=== PATIENT | male | born 1995 | race Two or more races ===

== ENCOUNTER 2017-05-24 11:46 | Emergency (ER) | payer SELFPAY ==
[~2017-05-24] VITALS: Ht 162.6 cm; Wt 60.8 kg
[2017-05-24 12:45] VITALS: BP 134/81
--- NOTE | 2017-05-24 13:04 | Emergency Room Report ---
History of Present Illness General Chief Complaint: Laceration Source: Patient Present Illness HPI 21-year-old male presents to the emergency department complaining of sustaining laceration to the distal left index finger yesterday while cutting with a knife at work. He states he is up-to-date with tetanus vaccination he reports pain only with applying pressure on top of where the laceration is. Denies pain at this time. Patient reports he continues to have some intermittent bleeding at this time. Denies taking blood thinning medications.Denies numbness tingling or loss of sensation or gross motor movements of the extremities, incontinence of bowel or bladder. Denies CP, Palpitations, LOC, AMS, dizziness, Changes in Vision, Sensation, paresthesias, or a sudden severe headache. Allergies: Coded Allergies: No Known Allergies (Unverified , 05/24/17) Patient History Past Medical History: see triage record Past Surgical History: none Pertinent Family History: none Immunizations: UTD Reviewed Nursing Documentation: PMH: Agreed, PSxH: Agreed Nursing Documentation-PMH Past Medical History: No Stated History Review of Systems All Other Systems: negative except mentioned in HPI Physical Exam Vital Signs Date Time Temp Pulse Resp B/P (MAP) Pulse Ox O2 Delivery O2 Flow Rate FiO2 05/24/17 12:11 98.6 81 16 134/81 99 Room Air Sp02 EP Interpretation: reviewed, normal General Appearance: no apparent distress, alert, GCS 15, non-toxic Head: normocephalic, atraumatic ENT: hearing grossly normal, normal voice Neck: full range of motion Respiratory: lungs clear, normal breath sounds, speaking full sentences Cardiovascular #1: regular rate, rhythm, normal capillary refill Musculoskeletal: back normal, gait/station normal, normal range of motion, non- tender Neurologic: alert, oriented x3, responsive, motor strength/tone normal, sensory intact, speech normal Skin: normal color, no rash, warm/dry, well hydrated, laceration - Avulsion of the distal portion of the left index finger involving minimal distal portion of the nail-bed. Medical Decision Making PA Attestation Dr. shukla is my supervising Physician whom patient management has been discussed with. Diagnostic Impression: Primary Impression: Fingertip avulsion Qualified Codes: S61.209A - Unspecified open wound of unspecified finger without damage to nail, initial encounter ER Course 21-year-old male presents to the emergency department complaining of sustaining laceration to the distal left index finger yesterday while cutting with a knife at work. He states he is up-to-date with tetanus vaccination he reports pain only with applying pressure on top of where the laceration is. Denies pain at this time. Patient reports he continues to have some intermittent bleeding at this time. Denies taking blood thinning medications.Denies numbness tingling or loss of sensation or gross motor movements of the extremities, incontinence of bowel or bladder. Denies CP, Palpitations, LOC, AMS, dizziness, Changes in Vision, Sensation, paresthesias, or a sudden severe headache. Ddx considered but are not limited to laceration, tendon injury, cellulitis, amputation, avulsion, nail-bed injury just to name a few. Vital signs: are WNL, pt. is afebrile H&PE are most consistent with: Avulsion of the distal portion of the left index finger involving minimal distal portion of the nail-bed. ORDERS: none required at this time, the diagnosis is clinical ED INTERVENTIONS: - The wound was copiously irrigated with normal saline, and explored for foreign body for which no FB was found. -Bleeding is controlled and hemostasis achieved with manual direct pressure. - petroleum gauze and sterile dressing is applied. -Finger Splint applied by oil change technician. Pt. remains neurovascularly intact. 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 Regardless of our best efforts there will be scarring after laceration repair. The extent of scarring is unknown at this time. DISCHARGE: At this time pt. is stable for d/c to home. Will provide printed patient care instructions, and any necessary prescriptions. Care plan and follow up instructions have been discussed with the patient prior to discharge. Last Vital Signs Date Time Temp Pulse Resp B/P (MAP) Pulse Ox O2 Delivery O2 Flow Rate FiO2 05/24/17 12:11 98.6 81 16 134/81 99 Room Air Disposition: HOME, SELF-CARE Condition: Stable Scripts Cephalexin* (KEFLEX*) 500 Mg Capsule 500 MG ORAL EVERY 12 HOURS for 7 Days, #14 CAP 0 Refills Prov: Jenni Gross P.A. 05/24/17 Acetaminophen* (TYLENOL EXTRA STRENGTH*) 500 Mg Tablet 500 MG ORAL Q6H, #20 TAB 0 Refills Prov: Jenni Gross 05/24/17 Bacitracin/Polymyxin B Sulfate (BACITRACIN-POLYMYXIN OINTMENT) 28.35 Gm Oint...g. 1 APPLIC TP BID, #28.3 GM Prov: Jenni Gross 05/24/17 Referrals: NOT CHOSEN IPA/MD,REFERRING (PCP) Departure Forms: Return to Work Return to Work Date: May 25, 2017 Work Restrictions: No Heavy Lifting Other Restrictions: limited use of the left hand x 1 week. Return to Full Activity: May 31, 2017 Patient Instructions: Nonsutured Laceration Care Additional Instructions: Take medications as directed. Follow up with a Primary Care Provider in 3-5 days, even if your symptoms have resolved. --Please review list of primary care clinics, if you do not already have a primary care provider Return sooner to ED if new symptoms occur, or current symptoms become worse. - Please note that this Emergency Department Report was dictated using [employer] control planner technology software, occasionally this can lead to erroneous entry secondary to interpretation by the dictation equipment. Jenni Gross May 24, 2017 13:04
[2017-05-24] MEDS ORDERED: CEPHALEXIN500 MG ORAL (13:06)
[2017-05-24] MEDS ORDERED: TYLENOL EXTRA500 MG ORAL (13:06)
[2017-05-24] MEDS ORDERED: BACITRACIN-P28.35 GM TP (13:06)
[2017-06-16 12:45] VITALS: BP 134/81
== END 2017-05-24 12:55 | disposition home or self-care (01) ==
LOC: EMR 12:30
DX: S61.311A Laceration without foreign body of left index finger with damage to nail, initial encounter (principal); W26.0XXA Contact with knife, initial encounter; Y92.89 Other specified places as the place of occurrence of the external cause
CPT/HCPCS: 99283